=== PATIENT | male | born 2000 | race Caucasian/White ===

== ENCOUNTER 2022-10-19 09:23 | Emergency (ER) | payer OTHER, BC, SELFPAY ==
[2022-10-19 09:25] VITALS: BP 131/76; PULSE 92; RESP 18; TEMP 36.3; O2SAT 98
[2022-10-19 10:12] VITALS: BMI 22.1
--- NOTE | 2022-10-19 10:15 | EX.ED.UPPERE ---
HPI History of Present Illness Chief Complaint: Laceration Informant: patient Occured/Mechanism Comment: Accidentally in size left wrist with a cut off blade that slipped Onset/Context/Timing Context: Sudden Onset Timing: Continuous Quality of Pain: - (Sore) Location: Left wrist Current Severity: Mild Maximum Severity: Moderate Associated Symptoms Associated Symptoms: Negative for Parasthesia, Weakness or Loss of Funtion Narrative Narrative: This is a home injury, not a work-related injury. He is right-hand dominant and was using a motorized cut off blade, accidentally hit his left wrist when it slipped. Tetanus Immunization: 5-10 years (5 years ago per patient) PFSH PFS Medical History no medical history no medical history Home Medications cefadroxil 500 mg capsule 500 mg PO BID #10 caps 10/19/22 [Rx Last Taken Unknown] Allergy/AdvReac Type Severity Reaction Status Date / Time No Known Allergies Allergy Verified 10/19/22 09:24 Social History Smoking Status: Never smoker ROS ROS ED Constitutional Constitutional ED: Denies chills or fever(s) Musculoskeletal Musculoskeletal: Reports extremity pain; Denies neck pain Integumentary Reports wounds; Denies Abrasions or rash Neurologic Neurologic: Denies paresthesias or weakness EXAM Physical Exam Const Vital Signs: 10/19/22 09:25 Temperature 97.3 F L Temperature Source Temporal Pulse Rate 92 Respiratory Rate 18 Blood Pressure 131/76 H Blood Pressure Mean 94 Pulse Ox 98 Oxygen Delivery Method Room Air Positive well nourished and well developed General Appearance ED: well developed and NAD Neck full ROM and supple Back/Spine normal ROM and normal to inspection Extremity Extremity Narrative: Full range of motion of wrist, all left fingers including exposed flexor carpi ulnaris. Neuro oriented x3, no focal motor deficits and no sensory deficits noted Sensorium / Orientation: alert Psych mental status grossly normal and thought process normal Skin Skin Narrative: 5 cm full-thickness laceration to the volar left distal forearm, about 6 cm proximal to the wrist itself. No pulsatile bleeding. I can see the palmaris longus tendon he can flex it does not appear to be injured. There is some slightly singed skin edges with some fine black debris but no obvious gross contamination within the wound itself. Rashes: no rashes MDM MDM MDM Narrative Medical decision making narrative: Upon anesthetizing locally and exploring the wound, he appears to have injured flexor carpi ulnaris. It is intact and not completely lacerated, I believe it is less than 50% injured. The laceration was repaired see the procedure note, placing him on antibiotics, and I discussed with orthopedics Dr. Hubbard who agrees with splinting him and have him follow-up within the next week. Procedures Lacerations L forearm: Length: 5 cm Depth: Tendon Shape: Linear Prep: Sterile Conditions and Chlorhexadine Laceration repair: Lidocaine (1% plain, 4cc) and Local Irrigated (ml): 100 Number of Sutures/Tena: 3 Suture Information: Ethilon, Horizontal, Mattress and 4-0 Comment: Flexor carpi ulnaris visualized within the wound, it is injured but intact and flexes when the patient flexes his wrist. Discharge Plan Triage Chief Complaint: Laceration ED Provider: Stan Lopez Dx/Rx/DC Orders Clinical Impression: Flexor tendon laceration of left forearm with open wound, Laceration of left forearm Instructions: ED Laceration Extremity, ED Tendon Laceration Prescriptions: New cefadroxil 500 mg capsule 500 mg PO BID Qty: 10 0RF Primary Care Provider: Care Physician,No Primary Referrals: Davy Hubbard DO [Med Staff - Active Staff] - As soon as possible Care Physician,No Primary [Primary Care Provider] - Disposition Disposition: Home, Self Care
[2022-10-19] MEDS: Lidocaine 1% (20 ml mdv) 20 ML Vial INFILT (10:27)
== END 2022-10-19 12:17 | disposition home or self-care (01) ==
PROVIDERS: Emergency Provider Emergency Medicine; Visit Provider Emergency Medicine
DX: S56.922A Laceration of unspecified muscles, fascia and tendons at forearm level, left arm, initial encounter (principal); S51.812A Laceration without foreign body of left forearm, initial encounter; X58.XXXA Exposure to other specified factors, initial encounter
CPT/HCPCS: 12002; 99284